=== PATIENT | male | born 1990 | race Caucasian/White ===

== ENCOUNTER 2016-08-21 15:58 | Outpatient (CLI) ==
[2016-08-21 16:12] LABS: BASOPHILS # (AUTO) 0.1 K/uL (0-0.2); BASOPHILS % (AUTO) 0.7 % (0.0-3.0); EOSINOPHILS % (AUTO) 7.2 % (0.0-7.0); HEMATOCRIT 45.4 % (42.0-52.0); HEMOGLOBIN 15.2 g/dl (14.0-18.0); IMMATURE GRANULOCYTE % (AUTO) 0.4 % (0.0-5.0); LYMPHOCYTES # (AUTO) 2.6 K/uL (0.60-3.4); LYMPHOCYTES % (AUTO) 18.8 (10.0-50.0); MEAN CORPUSCULAR HEMOGLOBIN 28.7 pg (27.0-31.0); MEAN CORPUSCULAR HGB CONC 33.5 (31.8-35.4); MEAN CORPUSCULAR VOLUME 85.8 fl (80.0-94.0); MONOCYTES % (AUTO) 7.3 (0-10); NEUTROPHILS % (AUTO) 65.6; PLATELET COUNT 304 10^3/uL (140-440); RED BLOOD COUNT 5.29 10^6/ul (4.70-6.10); WHITE BLOOD COUNT 13.69 K/ul (4.2-10.2)
[2016-08-21 16:31] LABS: ALBUMIN 4.2 g/dL (3.4-5.0); ALBUMIN/GLOBULIN RATIO 1.17; ANION GAP 13.7; BILIRUBIN,TOTAL 0.59 mg/dL (0.00-1.20); BUN/CREATININE RATIO 9.25; CALCIUM 9.8 mg/dL (8.2-10.2); CREATININE 1.08 mg/dL (0.60-1.10); POTASSIUM 3.7 mmol/L (3.5-5.1); TOTAL PROTEIN 7.8 g/dL (6.4-8.2)
--- NOTE | 2016-08-21 16:33 | DI ---
EXAM: CHEST FRONTAL AND LATERAL VIEWS HISTORY: Asthma, uncomplicated. COMPARISON: 02/28/2016 FINDINGS: Heart size and mediastinal contour remain within normal limits. No acute infiltrates. Normal vascularity with no pleural fluid or pneumothorax. The bony thorax has no acute finding. IMPRESSION: No acute process.
== END 2016-08-21 15:59 | disposition home or self-care (01) ==
LOC: LAB 15:58
PROVIDERS: ATTEND Nurse Practitioner Family
DX: J45.909 Unspecified asthma, uncomplicated (principal)
CPT/HCPCS: 36415; 80053; 85025

== ENCOUNTER 2016-08-29 09:12 | Outpatient (CLI) | payer OTHER | END 2016-08-29 09:13 | disposition home or self-care (01) | LOC: CAR 09:12 | PROVIDERS: ATTEND Nurse Practitioner Family | DX: J45.909 Unspecified asthma, uncomplicated (principal) ==

== ENCOUNTER 2018-10-06 11:18 | Outpatient (CLI) ==
--- NOTE | 2018-10-06 11:45 | DI ---
EXAM: Two views of the abdomen. History: Epigastric abdominal pain. Findings: Nonspecific but nonobstructive bowel gas pattern. No free intraperitoneal air. Moderate colonic stool. No suspicious calcifications and no acute osseous abnormalities. Impression: 1. No acute radiographic findings within the abdomen. 2. Moderate colonic stool
== END 2018-10-06 11:19 | disposition home or self-care (01) ==
LOC: RAD 11:18
PROVIDERS: ATTEND Nurse Practitioner Family
DX: R10.13 Epigastric pain (principal); R10.32 Left lower quadrant pain
CPT/HCPCS: 36415; 80053; 80061; 83690; 85025; 86677

== ENCOUNTER 2018-10-06 11:58 | Outpatient (CLI) | END 2018-10-06 11:59 | disposition home or self-care (01) | LOC: RHC-LAB 11:58 → FCC-LAB 11:59 | PROVIDERS: ATTEND Nurse Practitioner Family | DX: R10.13 Epigastric pain (principal); R10.32 Left lower quadrant pain ==